=== PATIENT | female | born 1970 | race American Indian/Alaskan Native ===

== ENCOUNTER 2018-06-27 03:04 | Emergency (ER) | payer OTHER ==
[2018-06-27 03:35] LABS: Basophils % (Auto) 0.2 % (0.0-1.8); Eosinophils # (Auto) 0.2 K/mm3 (0.0-0.4); Eosinophils % (Auto) 2.4 % (0.0-4.3); Hematocrit 39.4 % (30.3-42.9); Hemoglobin 13.5 gm/dl (10.1-14.3); Lymphocytes # (Auto) 1.5 K/mm3 (1.2-5.4); Mean Corpuscular HGB Conc 34 % (30-34); Mean Corpuscular Volume 86 fl (79-97); Monocytes # (Auto) 0.5 K/mm3 (0.0-0.8); Monocytes % (Auto) 7.5 % (0.0-7.3); Platelet Count 319 K/mm3 (140-440); Red Cell Distribution Width 13.8 % (13.2-15.2)
[2018-06-27 03:58] LABS: Alanine Aminotransferase 13 units/L (7-56); Albumin 4.2 g/dL (3.9-5); BUN/Creatinine Ratio 18; Blood Urea Nitrogen 11 mg/dL (7-17); Calcium 8.8 mg/dL (8.4-10.2); Hemolysis Index 9
--- NOTE | 2018-06-27 06:08 | Emergency Department Report ---
ED General Adult HPI - General Chief complaint: Dizziness Stated complaint: UPPER BACK PAIN, DIZZINESS AND NAUSEA Time Seen by Provider: 06/27/18 06:06 Source: patient Mode of arrival: Ambulatory Limitations: No Limitations - History of Present Illness Initial comments: 47-year-old with right flank to right posterior chest pain which began yesterday. Patient cannot recall if the onset was abrupt. It worsens on a deep inspiration. It is not associated with cough or shortness of breath. It does not radiate anteriorly. It is not associated with any symptoms. Patient denies family history of VTE. She does state that she recently traveled from [place]. Pain is dull and intermittent. -: Gradual (as far as I can ascertain) Location: back, right Radiation: non-radiation Severity scale (0 -10): 0 Quality: aching Consistency: intermittent Improves with: none Worsens with: none Associated Symptoms: denies other symptoms Treatments Prior to Arrival: none - Related Data Previous Rx's Medication Instructions Recorded Last Taken Type Tramadol HCl [Ultram] 50 mg PO Q6H PRN #10 tablet 06/27/18 Unknown Rx Allergies Allergy/AdvReac Type Severity Reaction Status Date / Time No Known Allergies Allergy Unverified 06/27/18 03:09 ED Review of Systems ROS: Stated complaint: UPPER BACK PAIN, DIZZINESS AND NAUSEA Other details as noted in HPI Constitutional: denies: chills, fever Eyes: denies: eye pain, eye discharge, vision change ENT: denies: ear pain, throat pain Respiratory: denies: cough, shortness of breath, wheezing Cardiovascular: chest pain. denies: palpitations Endocrine: no symptoms reported Gastrointestinal: denies: abdominal pain, nausea, diarrhea Genitourinary: denies: urgency, dysuria, discharge Musculoskeletal: back pain (right flank lower chest). denies: joint swelling, arthralgia Skin: denies: rash, lesions Neurological: denies: headache, weakness, paresthesias Psychiatric: denies: anxiety, depression Hematological/Lymphatic: denies: easy bleeding, easy bruising ED Past Medical Hx - Past Medical History Previous Medical History?: No - Surgical History Past Surgical History?: No - Social History Smoking Status: Current Every Day Smoker Substance Use Type: Alcohol - Medications Home Medications: Home Medications Medication Instructions Recorded Confirmed Last Taken Type Tramadol HCl [Ultram] 50 mg PO Q6H PRN #10 tablet 06/27/18 Unknown Rx ED Physical Exam - General Limitations: No Limitations General appearance: alert, in no apparent distress - Head Head exam: Present: atraumatic, normocephalic - Eye Eye exam: Present: normal appearance. Absent: scleral icterus - ENT ENT exam: Present: mucous membranes moist - Neck Neck exam: Present: normal inspection - Respiratory Respiratory exam: Present: normal lung sounds bilaterally. Absent: respiratory distress - Cardiovascular Cardiovascular Exam: Present: regular rate, normal rhythm. Absent: systolic m urmur, diastolic murmur, rubs, gallop - GI/Abdominal GI/Abdominal exam: Present: soft, normal bowel sounds. Absent: distended, tenderness, guarding, rebound, rigid - Extremities Exam Extremities exam: Present: normal inspection, normal capillary refill. Absent: calf tenderness - Back Exam Back exam: Present: normal inspection, CVA tenderness (R) (perhaps, exam somewhat equivocal). Absent: CVA tenderness (L) - Neurological Exam Neurological exam: Present: alert, oriented X3, CN II-XII intact. Absent: motor sensory deficit - Psychiatric Psychiatric exam: Present: normal affect, normal mood - Skin Skin exam: Present: warm, dry, intact, normal color. Absent: rash ED Course Vital Signs 06/27/18 06/27/18 06/27/18 03:12 04:36 06:32 Temperature 98.5 F 98.2 F Pulse Rate 83 76 Respiratory 18 15 15 Rate Blood Pressure 133/80 Blood Pressure 130/76 [Right] O2 Sat by Pulse 99 100 Oximetry - Reevaluation(s) Reevaluation #1: Patient resting comfortably. This initially asymptomatic. She is appropriate for outpatient management. Her workup was essentially negative. 06/27/18 10:18 ED Medical Decision Making - Lab Data Result diagrams: 06/27/18 03:23 06/27/18 03:23 Laboratory Results - last 24 hr 06/27/18 06/27/18 03:23 03:23 WBC 6.5 RBC 4.60 Hgb 13.5 Hct 39.4 MCV 86 MCH 29 MCHC 34 RDW 13.8 Plt Count 319 Lymph % (Auto) 23.0 [place] % (Auto) 7.5 H Eos % (Auto) 2.4 Baso % (Auto) 0.2 Lymph # 1.5 [place] # 0.5 Eos # 0.2 Baso # 0.0 Seg Neutrophils % 66.9 Seg Neutrophils # 4.4 Sodium 136 L Potassium 3.8 Chloride 101.8 Carbon Dioxide 24 Anion Gap 14 BUN 11 Creatinine 0.6 L Estimated GFR > 60 BUN/Creatinine Ratio 18 Glucose 106 H Calcium 8.8 Total Bilirubin 0.30 AST 17 ALT 13 Alkaline Phosphatase 64 Total Protein 7.5 Albumin 4.2 Albumin/Globulin Ratio 1.3 Laboratory Results - last 24 hr 06/27/18 06/27/18 03:23 03:23 WBC 6.5 RBC 4.60 Hgb 13.5 Hct 39.4 MCV 86 MCH 29 MCHC 34 RDW 13.8 Plt Count 319 Lymph % (Auto) 23.0 [place] % (Auto) 7.5 H Eos % (Auto) 2.4 Baso % (Auto) 0.2 Lymph # 1.5 [place] # 0.5 Eos # 0.2 Baso # 0.0 Seg Neutrophils % 66.9 Seg Neutrophils # 4.4 Sodium 136 L Potassium 3.8 Chloride 101.8 Carbon Dioxide 24 Anion Gap 14 BUN 11 Creatinine 0.6 L Estimated GFR > 60 BUN/Creatinine Ratio 18 Glucose 106 H Calcium 8.8 Total Bilirubin 0.30 AST 17 ALT 13 Alkaline Phosphatase 64 Total Protein 7.5 Albumin 4.2 Albumin/Globulin Ratio 1.3 Laboratory Results - last 24 hr 06/27/18 06/27/18 06/27/18 03:23 03:23 06:03 WBC 6.5 RBC 4.60 Hgb 13.5 Hct 39.4 MCV 86 MCH 29 MCHC 34 RDW 13.8 Plt Count 319 Lymph % (Auto) 23.0 [place] % (Auto) 7.5 H Eos % (Auto) 2.4 Baso % (Auto) 0.2 Lymph # 1.5 [place] # 0.5 Eos # 0.2 Baso # 0.0 Seg Neutrophils % 66.9 Seg Neutrophils # 4.4 PT INR APTT Sodium 136 L Potassium 3.8 Chloride 101.8 Carbon Dioxide 24 Anion Gap 14 BUN 11 Creatinine 0.6 L Estimated GFR > 60 BUN/Creatinine Ratio 18 Glucose 106 H Calcium 8.8 Total Bilirubin 0.30 AST 17 ALT 13 Alkaline Phosphatase 64 Total Protein 7.5 Albumin 4.2 Albumin/Globulin Ratio 1.3 Urine Color Yellow Urine Turbidity Clear Urine pH 5.0 Ur Specific [place] 1.018 Urine Protein <15 mg/dl Urine Glucose (UA) Neg Urine Ketones Neg Urine Blood Neg Urine Nitrite Neg Urine Bilirubin Neg Urine Urobilinogen < 2.0 Ur Leukocyte Esterase Neg Urine WBC (Auto) 1.0 Urine RBC (Auto) 1.0 U Epithel Cells (Auto) 3.0 Urine Mucus Few Urine HCG, Qual Negative 06/27/18 06:41 WBC RBC Hgb Hct MCV MCH MCHC RDW Plt Count Lymph % (Auto) [place] % (Auto) Eos % (Auto) Baso % (Auto) Lymph # [place] # Eos # Baso # Seg Neutrophils % Seg Neutrophils # PT 12.7 INR 0.90 APTT 31.9 Sodium Potassium Chloride Carbon Dioxide Anion Gap BUN Creatinine Estimated GFR BUN/Creatinine Ratio Glucose Calcium Total Bilirubin AST ALT Alkaline Phosphatase Total Protein Albumin Albumin/Globulin Ratio Urine Color Urine Turbidity Urine pH Ur Specific [place] Urine Protein Urine Glucose (UA) Urine Ketones Urine Blood Urine Nitrite Urine Bilirubin Urine Urobilinogen Ur Leukocyte Esterase Urine WBC (Auto) Urine RBC (Auto) U Epithel Cells (Auto) Urine Mucus Urine HCG, Qual Laboratory Results - last 24 hr 06/27/18 06/27/18 06/27/18 03:23 03:23 06:03 WBC 6.5 RBC 4.60 Hgb 13.5 Hct 39.4 MCV 86 MCH 29 MCHC 34 RDW 13.8 Plt Count 319 Lymph % (Auto) 23.0 [place] % (Auto) 7.5 H Eos % (Auto) 2.4 Baso % (Auto) 0.2 Lymph # 1.5 [place] # 0.5 Eos # 0.2 Baso # 0.0 Seg Neutrophils % 66.9 Seg Neutrophils # 4.4 PT INR APTT Sodium 136 L Potassium 3.8 Chloride 101.8 Carbon Dioxide 24 Anion Gap 14 BUN 11 Creatinine 0.6 L Estimated GFR > 60 BUN/Creatinine Ratio 18 Glucose 106 H Calcium 8.8 Total Bilirubin 0.30 AST 17 ALT 13 Alkaline Phosphatase 64 Total Protein 7.5 Albumin 4.2 Albumin/Globulin Ratio 1.3 Urine Color Yellow Urine Turbidity Clear Urine pH 5.0 Ur Specific [place] 1.018 Urine Protein <15 mg/dl Urine Glucose (UA) Neg Urine Ketones Neg Urine Blood Neg Urine Nitrite Neg Urine Bilirubin Neg Urine Urobilinogen < 2.0 Ur Leukocyte Esterase Neg Urine WBC (Auto) 1.0 Urine RBC (Auto) 1.0 U Epithel Cells (Auto) 3.0 Urine Mucus Few Urine HCG, Qual Negative 06/27/18 06:41 WBC RBC Hgb Hct MCV MCH MCHC RDW Plt Count Lymph % (Auto) [place] % (Auto) Eos % (Auto) Baso % (Auto) Lymph # [place] # Eos # Baso # Seg Neutrophils % Seg Neutrophils # PT 12.7 INR 0.90 APTT 31.9 Sodium Potassium Chloride Carbon Dioxide Anion Gap BUN Creatinine Estimated GFR BUN/Creatinine Ratio Glucose Calcium Total Bilirubin AST ALT Alkaline Phosphatase Total Protein Albumin Albumin/Globulin Ratio Urine Color Urine Turbidity Urine pH Ur Specific [place] Urine Protein Urine Glucose (UA) Urine Ketones Urine Blood Urine Nitrite Urine Bilirubin Urine Urobilinogen Ur Leukocyte Esterase Urine WBC (Auto) Urine RBC (Auto) U Epithel Cells (Auto) Urine Mucus Urine HCG, Qual Laboratory Results - last 24 hr 06/27/18 06/27/18 06/27/18 03:23 03:23 06:03 WBC 6.5 RBC 4.60 Hgb 13.5 Hct 39.4 MCV 86 MCH 29 MCHC 34 RDW 13.8 Plt Count 319 Lymph % (Auto) 23.0 [place] % (Auto) 7.5 H Eos % (Auto) 2.4 Baso % (Auto) 0.2 Lymph # 1.5 [place] # 0.5 Eos # 0.2 Baso # 0.0 Seg Neutrophils % 66.9 Seg Neutrophils # 4.4 PT INR APTT Sodium 136 L Potassium 3.8 Chloride 101.8 Carbon Dioxide 24 Anion Gap 14 BUN 11 Creatinine 0.6 L Estimated GFR > 60 BUN/Creatinine Ratio 18 Glucose 106 H Calcium 8.8 Total Bilirubin 0.30 AST 17 ALT 13 Alkaline Phosphatase 64 Total Protein 7.5 Albumin 4.2 Albumin/Globulin Ratio 1.3 Urine Color Yellow Urine Turbidity Clear Urine pH 5.0 Ur Specific [place] 1.018 Urine Protein <15 mg/dl Urine Glucose (UA) Neg Urine Ketones Neg Urine Blood Neg Urine Nitrite Neg Urine Bilirubin Neg Urine Urobilinogen < 2.0 Ur Leukocyte Esterase Neg Urine WBC (Auto) 1.0 Urine RBC (Auto) 1.0 U Epithel Cells (Auto) 3.0 Urine Mucus Few Urine HCG, Qual Negative 06/27/18 06:41 WBC RBC Hgb Hct MCV MCH MCHC RDW Plt Count Lymph % (Auto) [place] % (Auto) Eos % (Auto) Baso % (Auto) Lymph # [place] # Eos # Baso # Seg Neutrophils % Seg Neutrophils # PT 12.7 INR 0.90 APTT 31.9 Sodium Potassium Chloride Carbon Dioxide Anion Gap BUN Creatinine Estimated GFR BUN/Creatinine Ratio Glucose Calcium Total Bilirubin AST ALT Alkaline Phosphatase Total Protein Albumin Albumin/Globulin Ratio Urine Color Urine Turbidity Urine pH Ur Specific [place] Urine Protein Urine Glucose (UA) Urine Ketones Urine Blood Urine Nitrite Urine Bilirubin Urine Urobilinogen Ur Leukocyte Esterase Urine WBC (Auto) Urine RBC (Auto) U Epithel Cells (Auto) Urine Mucus Urine HCG, Qual Laboratory Results - last 24 hr 06/27/18 06/27/18 06/27/18 03:23 03:23 06:03 WBC 6.5 RBC 4.60 Hgb 13.5 Hct 39.4 MCV 86 MCH 29 MCHC 34 RDW 13.8 Plt Count 319 Lymph % (Auto) 23.0 [place] % (Auto) 7.5 H Eos % (Auto) 2.4 Baso % (Auto) 0.2 Lymph # 1.5 [place] # 0.5 Eos # 0.2 Baso # 0.0 Seg Neutrophils % 66.9 Seg Neutrophils # 4.4 PT INR APTT D-Dimer Sodium 136 L Potassium 3.8 Chloride 101.8 Carbon Dioxide 24 Anion Gap 14 BUN 11 Creatinine 0.6 L Estimated GFR > 60 BUN/Creatinine Ratio 18 Glucose 106 H Calcium 8.8 Total Bilirubin 0.30 AST 17 ALT 13 Alkaline Phosphatase 64 Total Protein 7.5 Albumin 4.2 Albumin/Globulin Ratio 1.3 Urine Color Yellow Urine Turbidity Clear Urine pH 5.0 Ur Specific [place] 1.018 Urine Protein <15 mg/dl Urine Glucose (UA) Neg Urine Ketones Neg Urine Blood Neg Urine Nitrite Neg Urine Bilirubin Neg Urine Urobilinogen < 2.0 Ur Leukocyte Esterase Neg Urine WBC (Auto) 1.0 Urine RBC (Auto) 1.0 U Epithel Cells (Auto) 3.0 Urine Mucus Few Urine HCG, Qual Negative 06/27/18 06:41 WBC RBC Hgb Hct MCV MCH MCHC RDW Plt Count Lymph % (Auto) [place] % (Auto) Eos % (Auto) Baso % (Auto) Lymph # [place] # Eos # Baso # Seg Neutrophils % Seg Neutrophils # PT 12.7 INR 0.90 APTT 31.9 D-Dimer < 135 Sodium Potassium Chloride Carbon Dioxide Anion Gap BUN Creatinine Estimated GFR BUN/Creatinine Ratio Glucose Calcium Total Bilirubin AST ALT Alkaline Phosphatase Total Protein Albumin Albumin/Globulin Ratio Urine Color Urine Turbidity Urine pH Ur Specific [place] Urine Protein Urine Glucose (UA) Urine Ketones Urine Blood Urine Nitrite Urine Bilirubin Urine Urobilinogen Ur Leukocyte Esterase Urine WBC (Auto) Urine RBC (Auto) U Epithel Cells (Auto) Urine Mucus Urine HCG, Qual - EKG Data -: EKG Interpreted by Me EKG shows normal: sinus rhythm, axis, intervals, QRS complexes, ST-T waves Rate: normal - EKG Data Interpretation: no acute changes - Radiology Data Chest x-ray appears normal to me. Critical care attestation.: If time is entered above; I have spent that time in minutes in the direct care of this critically ill patient, excluding procedure time. ED Disposition Clinical Impression: Upper back pain on right side Disposition: - TO HOME OR SELFCARE Is pt being admited?: No Does the pt Need Aspirin: No Condition: Stable Instructions: Back Pain (ED) Additional Instructions: Return any acute change or problems. Follow-up with a primary care physician. Do not have one C referrals. Rx as needed for discomfort. Return any significant pain. Prescriptions: Tramadol HCl [Ultram] 50 mg PO Q6H PRN #10 tablet PRN Reason: Pain, Moderate (4-6) Referrals: JUAN SCHMIDT MD [Primary Care Provider] - 3-5 Days MARLO BIGGS MD [Staff Physician] - 2-3 Days Time of Disposition: 10:19
[2018-06-27] MEDS ORDERED: TORADOL IM ONE (06:26)
[2018-06-27 07:06] LABS: Bilirubin,Urine NEG (Negative); Blood,Urine NEG (Negative); Color,Urine Yellow (Yellow); Mucus,Urine FEW /HPF; Protein,Urine <15 mg/dL mg/dL (Negative); Urobilinogen,Urine < 2.0 mg/dL (<2.0)
[2018-06-27 07:10] LABS: HCG Qualitative,Urine Negative (Negative)
[2018-06-27 07:20] LABS: Partial Thromboplastin Time 31.9 Sec. (24.2-36.6)
--- NOTE | 2018-06-27 07:39 | XRay Report ---
PROCEDURE: XR CHEST 1V AP TECHNIQUE: AP portable chest radiograph HISTORY: R side CP COMPARISONS: None FINDINGS: No mediastinal shift. Cardiac silhouette is not enlarged. No pneumothorax, effusion, or focal pulmona ry opacity identified. No acute skeletal findings. IMPRESSION: No acute pulmonary finding identified. This document is electronically signed by Rohan Lewis MD., June 27 2018 07:37:38 AM ET
[2018-06-27 11:01] VITALS: BP 129/75
== END 2018-06-27 11:03 | disposition home or self-care (01) ==
LOC: ED 03:04
DX: R07.89 Other chest pain (principal); M54.9 Dorsalgia, unspecified; F17.200 Nicotine dependence, unspecified, uncomplicated
CPT/HCPCS: 36415; 71045; 80053; 81001; 81025; 85025; 85379; 85610; 85730; 93005; 93010; 96372; 99284; J1885

== ENCOUNTER 2018-07-16 23:14 | Emergency (ER) | payer OTHER ==
[2018-07-16 23:27] VITALS: BP 135/76
--- NOTE | 2018-07-17 01:32 | Emergency Department Report ---
ED Anxiety HPI - General Chief Complaint: Anxiety Stated Complaint: ANXIETY Time Seen by Provider: 07/17/18 01:32 Source: patient Mode of arrival: Ambulatory - Related Data Home Medications: Previous Rx's Medication Instructions Recorded Last Taken Type Tramadol HCl [Ultram] 50 mg PO Q6H PRN #10 tablet 06/27/18 Unknown Rx Allergies/Adverse Reactions: Allergies Allergy/AdvReac Type Severity Reaction Status Date / Time No Known Allergies Allergy Unverified 06/27/18 03:09 ED Review of Systems ROS: Stated complaint: ANXIETY Other details as noted in HPI ED Past Medical Hx - Past Medical History Previous Medical History?: Yes Hx Psychiatric Treatment: Yes (Anxiety) - Surgical History Past Surgical History?: No - Social History Smoking Status: Current Every Day Smoker Substance Use Type: None - Medications Home Medications: Home Medications Medication Instructions Recorded Confirmed Last Taken Type Tramadol HCl [Ultram] 50 mg PO Q6H PRN #10 tablet 06/27/18 Unknown Rx ED Physical Exam - General Limitations: No Limitations ED Course Vital Signs 07/16/18 23:20 Temperature 97.9 F Pulse Rate 85 Respiratory 16 Rate Blood Pressure 135/76 O2 Sat by Pulse 99 Oximetry Critical care attestation.: If time is entered above; I have spent that time in minutes in the direct care of this critically ill patient, excluding procedure time. ED Disposition Condition: Stable
== END 2018-07-17 02:39 | disposition home or self-care (01) ==
LOC: ED 23:14
DX: F41.9 Anxiety disorder, unspecified (principal); F17.200 Nicotine dependence, unspecified, uncomplicated
CPT/HCPCS: 99282

== ENCOUNTER 2018-12-26 22:14 | Emergency (ER) | payer OTHER ==
--- NOTE | 2018-12-26 23:44 | XRay Report ---
CERVICAL SPINE 3 VIEWS INDICATION / CLINICAL INFORMATION: neck pain. COMPARISON: None available. FINDINGS: VERTEBRAE: No fracture. No significant malalignment. DISC SPACES:No significant abnormality. PREVERTEBRAL SOFT TISSUES:No significant abnormality. ADDITIONAL FINDINGS: Small bilateral cervical ribs IMPRESSION: 1. No significant abnormality. Signer Name: Guillermo Giraldo MD Signed: 12/26/2018 11:39 PM Workstation Name: [id number]
[2018-12-26] MEDS ORDERED: BUTALB/ACETAMINOPHEN/CAFFEINE TAB PO ONE (23:59)
[2018-12-27] MEDS ORDERED: IBUPROFEN 800 MG TAB PO ONE
[2018-12-27] MEDS ORDERED: BUTALB/ACETAMINOPHEN/CAFFEINE TAB PO ONE
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
[2018-12-27 01:25] VITALS: BP 138/82
== END 2018-12-27 01:15 | disposition home or self-care (01) ==
LOC: ED 22:14
DX: S16.1XXA Strain of muscle, fascia and tendon at neck level, initial encounter (principal); R51 Headache; F41.9 Anxiety disorder, unspecified; F17.200 Nicotine dependence, unspecified, uncomplicated; Z98.890 Other specified postprocedural states; Z79.899 Other long term (current) drug therapy; V43.62XA Car passenger injured in collision with other type car in traffic accident, initial encounter; Y93.89 Activity, other specified; Y92.488 Other paved roadways as the place of occurrence of the external cause; Y99.8 Other external cause status
CPT/HCPCS: 72040; 99283

== ENCOUNTER 2019-02-22 22:08 | Emergency (ER) | payer SELFPAY ==
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
[2019-02-23] MEDS ORDERED: KETOROLAC 60 MG/2 ML INJ IM ONE (00:29)
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
[2019-02-23] MEDS ORDERED: KETOROLAC 10 MG TAB PO ONE (01:00)
[2019-02-23 01:35] VITALS: BP 119/72
== END 2019-02-23 01:20 | disposition home or self-care (01) ==
LOC: ED 22:08
DX: M54.5 Low back pain (principal); F41.9 Anxiety disorder, unspecified; F17.200 Nicotine dependence, unspecified, uncomplicated; Z79.899 Other long term (current) drug therapy; V49.49XA Driver injured in collision with other motor vehicles in traffic accident, initial encounter; Y93.89 Activity, other specified; Y92.410 Unspecified street and highway as the place of occurrence of the external cause; Y99.8 Other external cause status
CPT/HCPCS: 72100; 99283; J1885; 96372

== ENCOUNTER 2019-02-23 21:10 | Emergency (ER) | payer OTHER ==
[2019-02-23 21:44] VITALS: BP 128/76
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
[2019-02-24] MEDS ORDERED: traMADol 50 MG TAB PO ONE (00:24)
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
== END 2019-02-24 00:59 | disposition home or self-care (01) ==
LOC: ED 21:10
DX: R51 Headache (principal); M54.5 Low back pain; F41.9 Anxiety disorder, unspecified; F17.200 Nicotine dependence, unspecified, uncomplicated; Z79.899 Other long term (current) drug therapy; V49.59XA Passenger injured in collision with other motor vehicles in traffic accident, initial encounter; Y93.89 Activity, other specified; Y92.410 Unspecified street and highway as the place of occurrence of the external cause; Y99.8 Other external cause status

== ENCOUNTER 2020-12-24 10:52 | Emergency (ER) | payer SELFPAY ==
--- NOTE | 2020-12-24 11:53 | Emergency Department Report ---
ED General Adult HPI - General Chief complaint: Extremity Problem,Nontraumatic Stated complaint: RT EYE PAIN/LEFT SHOULDER Time Seen by Provider: 12/24/20 11:19 Source: patient Mode of arrival: Ambulatory Limitations: No Limitations - History of Present Illness Initial comments: Patient is a 50-year-old female presents emergency room with complaints of left shoulder pain that began a couple weeks ago. She states it has gradually been worsening over time. She states that her pain is worse with raising her arm above her head or reaching to grab something. She denies any fall or injury. Patient states that she is currently in the process of being evaluated for autoimmune disorders and arthritis. She states that her AKUA was positive and she was referred to a school bus monitor and she is awaiting insurance approval. Patient states that also this morning she began having right eye redness and irritation. She states that she has seen a small amount of drainage. She denies any contact lens use. She denies any sick contacts with similar symptoms. She states her vision feels slightly blurry but she is still able to see. She states that she has photophobia. No allergies to medications. - Related Data Previous Rx's Medication Instructions Recorded Last Taken Type Tramadol HCl [Ultram] 50 mg PO Q6H PRN #10 tablet 06/27/18 Unknown Rx clonazePAM [clonazePAM Rapdis] 0.25 mg PO BID PRN #12 tab.rapdis 07/17/18 Unknown Rx Butalb/Acetamin/Caff 50-325-40 1 tab PO Q6HR PRN #10 tab 12/27/18 Unknown Rx [Fioricet] Naproxen [Naprosyn] 500 mg PO BID #20 tablet 12/27/18 Unknown Rx Ondansetron [Zofran Odt] 4 mg PO Q8HR PRN #14 tab.rapdis 02/23/19 Unknown Rx traMADoL [Ultram 50 MG tab] 50 mg PO Q4HR PRN #14 tablet 02/23/19 Unknown Rx traMADoL [Ultram] 50 mg PO Q6HR PRN #15 tablet 02/24/19 Unknown Rx Meloxicam [Mobic] 7.5 mg PO QDAY 10 Days #10 tablet 12/24/20 Unknown Rx Menthol/Camphor [Cameron Hope 1 applicatio TP BID #18 oint...g. 12/24/20 Unknown Rx Ointment] methOCARBAMOL [Robaxin TAB] 500 mg PO BID PRN #14 tab 12/24/20 Unknown Rx predniSONE [Deltasone] 40 mg PO DAILY 5 Days #10 tablet 12/24/20 Unknown Rx Allergies Allergy/AdvReac Type Severity Reaction Status Date / Time No Known Allergies Allergy Verified 12/26/18 22:17 ED Review of Systems ROS: Stated complaint: RT EYE PAIN/LEFT SHOULDER Other details as noted in HPI Comment: All other systems reviewed and negative ED Past Medical Hx - Past Medical History Previous Medical History?: Yes Hx Psychiatric Treatment: Yes (Anxiety) Additional medical history: chronic back pain - Surgical History Past Surgical History?: Yes Additional Surgical History: wisdom teeth - Social History Smoking Status: Current Every Day Smoker Substance Use Type: None - Medications Home Medications: Home Medications Medication Instructions Recorded Confirmed Last Taken Type Tramadol HCl [Ultram] 50 mg PO Q6H PRN #10 tablet 06/27/18 Unknown Rx clonazePAM [clonazePAM Rapdis] 0.25 mg PO BID PRN #12 tab.rapdis 07/17/18 Unknown Rx Butalb/Acetamin/Caff 50-325-40 1 tab PO Q6HR PRN #10 tab 12/27/18 Unknown Rx [Fioricet] Naproxen [Naprosyn] 500 mg PO BID #20 tablet 12/27/18 Unknown Rx Ondansetron [Zofran Odt] 4 mg PO Q8HR PRN #14 tab.rapdis 02/23/19 Unknown Rx traMADoL [Ultram 50 MG tab] 50 mg PO Q4HR PRN #14 tablet 02/23/19 Unknown Rx traMADoL [Ultram] 50 mg PO Q6HR PRN #15 tablet 02/24/19 Unknown Rx Meloxicam [Mobic] 7.5 mg PO QDAY 10 Days #10 tablet 12/24/20 Unknown Rx Menthol/Camphor [Cameron Hope 1 applicatio TP BID #18 oint...g. 12/24/20 Unknown Rx Ointment] methOCARBAMOL [Robaxin TAB] 500 mg PO BID PRN #14 tab 12/24/20 Unknown Rx predniSONE [Deltasone] 40 mg PO DAILY 5 Days #10 tablet 12/24/20 Unknown Rx ED Physical Exam - General Limitations: No Limitations General appearance: alert, in no apparent distress - Head Head exam: Present: atraumatic, normocephalic - Eye Eye exam: Present: PERRL, EOMI, conjunctival injection (right conjunctival injection, no edema of the eyelids, no visualized foreign body ). Absent: periorbital swelling, periorbital tenderness - ENT ENT exam: Present: mucous membranes moist - Respiratory Respiratory exam: Absent: respiratory distress, accessory muscle use - Back Exam Back exam: Present: other (no bony ttp of the LUE, FROM of the LUE with discomfort upon flexion of the shoulder greater than 90 degrees, no edema, no erythema, no increased warmth, neurovascularly intact) - Neurological Exam Neurological exam: Present: alert, oriented X3 - Psychiatric Psychiatric exam: Present: normal affect, normal mood - Skin Skin exam: Present: warm, dry, intact ED Course Vital Signs 12/24/20 12/24/20 11:11 12:14 Temperature 97.7 F 98.4 F Pulse Rate 75 74 Respiratory 16 12 Rate Blood Pressure 129/83 Blood Pressure 111/64 [Right] O2 Sat by Pulse 100 98 Oximetry ED Medical Decision Making - Medical Decision Making Patient is a 50-year-old female presents emergency room with complaints of left shoulder pain that began a couple weeks ago. She states it has gradually been worsening over time. She states that her pain is worse with raising her arm above her head or reaching to grab something. She denies any fall or injury. Patient states that she is currently in the process of being evaluated for autoimmune disorders and arthritis. She states that her AKUA was positive and she was referred to a school bus monitor and she is awaiting insurance approval. Patient states that also this morning she began having right eye redness and irritation. She states that she has seen a small amount of drainage. She denies any contact lens use. She denies any sick contacts with similar symptoms. She states her vision feels slightly blurry but she is still able to see. She states that she has photophobia. No allergies to medications. Vitals are normal. On exam: right conjunctival injection, no edema of the eyelids, no visualized foreign body, no bony ttp of the LUE, FROM of the LUE with discomfort upon flexion of the shoulder greater than 90 degrees, no edema, no erythema, no increased warmth, neurovascularly intact. Eye exam appears consistent with conjunctivitis. Shoulder pain could be secondary to rotator cuff tendinitis versus arthritis, patient has had no acute trauma, she has no signs of infection or septic joint. Patient given prescription for medications. Advised patient Please use medication as prescribed. Follow-up with your primary care doctor. Follow-up with orthopedic doctor. Return to emergency room for any new or worsening symptoms. Critical care attestation.: If time is entered above; I have spent that time in minutes in the direct care of this critically ill patient, excluding procedure time. ED Disposition Clinical Impression: Left shoulder pain Qualifiers: Chronicity: acute Qualified Code(s): M25.512 - Pain in left shoulder Conjunctivitis Qualifiers: Conjunctivitis type: acute Acute conjunctivitis type: unspecified Laterality: right Qualified Code(s): H10.31 - Unspecified acute conjunctivitis, right eye Disposition: HOME / SELF CARE / HOMELESS Is pt being admited?: No Does the pt Need Aspirin: No Condition: Stable Instructions: Shoulder Pain, Viral Conjunctivitis, Adult, Bacterial Conjun ctivitis, Adult Additional Instructions: Please use medication as prescribed. Follow-up with your primary care doctor. Follow-up with orthopedic doctor. Return to emergency room for any new or worsening symptoms. Prescriptions: predniSONE [Deltasone] 40 mg PO DAILY 5 Days #10 tablet Meloxicam [Mobic] 7.5 mg PO QDAY 10 Days #10 tablet methOCARBAMOL [Robaxin TAB] 500 mg PO BID PRN #14 tab PRN Reason: muscle spasm/pain Menthol/Camphor [Cameron Hope Ointment] 1 applicatio TP BID #18 oint...g. Referrals: CAITLIN VERNON MD [Staff Physician] - 3-5 Days [facility] [Provider Group] - 3-5 Days your, primary care doctor [Other] - 3-5 Days Time of Disposition: 11:51 Print Language: NEPALI
[2020-12-24 12:15] VITALS: BP 111/64
== END 2020-12-24 12:32 | disposition home or self-care (01) ==
LOC: ED 10:52
DX: M25.512 Pain in left shoulder (principal); H10.9 Unspecified conjunctivitis; F17.200 Nicotine dependence, unspecified, uncomplicated
CPT/HCPCS: 99282